=== PATIENT | female | born 1985 | race Caucasian/White ===

== ENCOUNTER 2020-11-29 21:11 | Day surgery (SDCO) | payer OTHER ==
[~2020-11-29] VITALS: Ht 172.7 cm; Wt 133.8 kg
[~2020-11-29 21:11] MED LIST: ETODOLAC500 MG PO
[2020-11-29 22:37] LABS: BASOPHIL 0.2 % (0-2); EOSINOPHIL 0.2 % (0-5); HCT 45.6 % (37.0-47.0); HGB 14.9 g/dl (12.5-16.0); LYMPHOCYTE 6.4 % (15-48); MCH 28.1 pg (25.0-31.0); MCHC 32.7 g/dL (32.0-36.0); MONOCYTE 4.8 % (0-12); MPV 10.4 fL (6.0-9.5); NEUTROPHIL 87.6 % (41-80); NRBC 0; PLT 290 K/uL (150-400); RDW 13.2 % (11.5-14.0)
[2020-11-29 22:39] LABS: WBC 21.5 K/uL (4.0-10.5)
[2020-11-29 22:50] LABS: BUN/CREAT RATIO (CALC) 17.4 RATIO; CREATININE 0.86 mg/dL (0.51-0.95); POTASSIUM 3.6 mmol/L (3.5-5.1)
[2020-11-29 22:56] LABS: LACTIC ACID 3.9 mmol/L (0.4-1.9)
[2020-11-30 01:16] LABS: BILIRUBIN NEGATIVE (NEGATIVE); BLOOD NEGATIVE Ery/uL (NEGATIVE); CLARITY CLEAR (CLEAR); COLOR YELLOW (YELLOW); GLUCOSE (U) NORMAL (NORMAL); LEUKOCYTES NEGATIVE Leu/uL (NEGATIVE); NITRITE NEGATIVE (NEGATIVE); PROTEIN 1+ mg/dL (NEGATIVE); SPECIFIC GRAVITY >=1.030 (1.001-1.030); UROBILINOGEN 0.2 mg/dL (0.2-1.0); pH 5.5 (5.0-9.0)
[2020-11-30 01:22] LABS: BACTERIA TRACE
[2020-11-30 01:23] LABS: AMPHETAMINES NEGATIVE (NEGATIVE); BARBITURATES NEGATIVE (NEGATIVE); ECSTASY (MDMA) NEGATIVE (NEGATIVE); MARIJUANA (THC) NEGATIVE (NEGATIVE); METHADONE NEGATIVE (NEGATIVE); OPIATES NEGATIVE (NEGATIVE); OXYCODONE NEGATIVE (NEGATIVE)
[2020-11-30 01:55] LABS: CORONAVIRUS 2019 SARS-COV-2 NEGATIVE (NEGATIVE); INFLUENZA A NAA NEGATIVE (NEGATIVE)
[2020-11-30 07:26] LABS: CLARITY (FLUID) SLIGHTLY HAZY; COLOR (FLUID) COLORLESS; WBC (FLUID) 139 WBC/uL
[2020-11-30 07:37] LABS: RBC (FLUID) 53 RBC/uL
[2020-12-01 05:33] LABS: BASOPHIL 0.5 % (0-2); EOSINOPHIL 0.7 % (0-5); HCT 41.2 % (37.0-47.0); HGB 13.2 g/dl (12.5-16.0); LYMPHOCYTE 21.9 % (15-48); MCH 27.8 pg (25.0-31.0); MCV 86.9 fL (78.0-100.0); MONOCYTE 8.6 % (0-12); MPV 10.5 fL (6.0-9.5); NEUTROPHIL 67.9 % (41-80); NRBC 0; PLT 254 K/uL (150-400); RBC 4.74 M/uL (4.20-5.40); WBC 10.3 K/uL (4.0-10.5)
[2020-12-01 07:11] LABS: BILIRUBIN - TOTAL 0.6 mg/dL (0.2-1.0); BUN/CREAT RATIO (CALC) 7.9 RATIO; CREATININE 0.76 mg/dL (0.51-0.95); GLOBULIN (CALCULATION) 3.5 g/dL; MAGNESIUM 2.1 mg/dL (1.8-2.4); POTASSIUM 3.6 mmol/L (3.5-5.1); TOTAL PROTEIN 6.5 g/dL (6.4-8.2)
[2020-12-01] MEDS ORDERED: NYSTATIN SUSP1 ML/ML SSW (17:05)
[2020-12-02] MEDS ORDERED: ONDANSETRON ODT4 MG PO (13:27)
[2020-12-02] MEDS ORDERED: PRINIVIL20 MG PO (13:27)
== END 2020-12-01 17:15 | disposition home or self-care (01) ==
LOC: FER 21:11 → FMS 11-30 06:06
PROVIDERS: Emergency Medicine; Nurse Practitioner Adult Health; ADMIT Internal Medicine
DX: A41.89 Other specified sepsis (principal); A08.4 Viral intestinal infection, unspecified; G93.2 Benign intracranial hypertension; I10 Essential (primary) hypertension; B37.0 Candidal stomatitis; E28.2 Polycystic ovarian syndrome; J06.9 Acute upper respiratory infection, unspecified; J32.8 Other chronic sinusitis; Z20.822 Contact with and (suspected) exposure to COVID-19
CPT/HCPCS: 36415; 70450; 71045; 80048; 80053; 80305; 81001; 82945; 83605; 83735; 84145; 84155; 85025; 87040; 87070; 87205; 89051; 96365; 96367; G0378; J0692; J0780; J2250; J2405; J2543; J3370; J7030; J7040; J7050; Q0162; Q9967; U0002

== ENCOUNTER 2020-12-02 09:10 | Emergency (ER) | payer OTHER ==
[~2020-12-02 09:10] MED LIST changes: +NYSTATIN SUSP1 ML/ML SSW
[2020-12-02] MEDS ORDERED: ONDANSETRON ODT4 MG PO (13:27)
[2020-12-02] MEDS ORDERED: PRINIVIL20 MG PO (13:27)
== END 2020-12-02 13:28 | disposition home or self-care (01) ==
LOC: FER 09:10
DX: G97.1 Other reaction to spinal and lumbar puncture (principal); I10 Essential (primary) hypertension
CPT/HCPCS: 96374; 96375; J1170; J2405